=== PATIENT | male | born 2005 | race Caucasian/White ===

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

== ENCOUNTER 2024-03-19 16:57 | Emergency (ER) | payer OTHER ==
[~2024-03-19] VITALS: Ht 187.9 cm; Wt 71.2 kg
[2024-03-19] MEDS ORDERED: ceFAZolin sodium/sodium chlor 10 ML IV ONE (17:20)
[2024-03-19] MEDS ORDERED: QUETIAPINE FUM200 M3 PO (17:20)
[2024-03-19] MEDS ORDERED: SODIUM CHLORIDE 0.9% 1,000 ML IV ONE (17:20)
[2024-03-19] MEDS ORDERED: Ondansetron Hydrochloride 4 MG/2 ML VIAL IV ONE (17:20)
[2024-03-19] MEDS ORDERED: fentaNYL CITRATE/PF 50 MCG/ML SYRINGE IV ONE (17:20)
[2024-03-19] MEDS ORDERED: HYDROXYZINE PAM25 M1 PO (17:21)
[2024-03-19] MEDS ORDERED: 'XANAX1 MG PO (17:22)
[2024-03-19 17:31] LABS: BASO # 0.1 10*3/uL (0.0-0.1); BASO % 0.6 % (0.0-1.0); EOS % 0.1 % (1.0-4.0); HEMATOCRIT 46.3 % (42.0-52.0); MEAN CORPUSCULAR HGB 32.1 pg (27.0-31.0); MEAN CORPUSCULAR HGB CONC 34.6 g/dl (33.0-37.0); MEAN PLATELET VOLUME 8.8 fl (9.6-12.3); MONO # 0.7 10*3/uL (0.1-1.0); MONO % 6.9 % (3.0-9.0); NEUT # 8.2 10*3/uL (2.3-7.9); NEUT % 78.2 % (47.0-73.0); PLATELET COUNT AUTOMATED 270 10*3/uL (130-400); RED BLOOD COUNT 4.98 10*6/uL (4.50-5.90); WHITE BLOOD COUNT 10.5 10*3/uL (4.8-10.8)
[2024-03-19 17:46] LABS: CHLORIDE 103 mmol/L (98-107); POTASSIUM 3.4 mmol/L (3.4-5.1)
[2024-03-19 17:52] LABS: BUN < 5 mg/dl (9-23)
== END 2024-03-19 18:23 | disposition short-term general hospital (02) ==
LOC: ED 16:57
PROVIDERS: Emergency Medicine
DX: S02.92XA Unspecified fracture of facial bones, initial encounter for closed fracture (principal); S01.81XA Laceration without foreign body of other part of head, initial encounter; F41.9 Anxiety disorder, unspecified; F31.9 Bipolar disorder, unspecified; F19.10 Other psychoactive substance abuse, uncomplicated; V87.8XXA Person injured in other specified noncollision transport accidents involving motor vehicle (traffic), initial encounter; Y93.89 Activity, other specified; Y92.410 Unspecified street and highway as the place of occurrence of the external cause; Y99.8 Other external cause status